=== PATIENT | male | born 1975 ===

== ENCOUNTER → 2021-02-28 07:56 | Outpatient (CLI) | payer OTHER | END | disposition home or self-care (01) | LOC: LAB 07:56 | PROVIDERS: ATTEND Internal Medicine Hematology & Oncology | DX: C18.2 Malignant neoplasm of ascending colon (principal); D51.3 Other dietary vitamin B12 deficiency anemia; E55.9 Vitamin D deficiency, unspecified ==

== ENCOUNTER 2024-10-23 08:55 | Outpatient (CLI) | payer OTHER ==
[2024-10-23 11:27] LABS: HEMATOCRIT 43.9 % (39.0-48.0); HEMOGLOBIN 14.7 g/dL (13-16.00); MEAN CELL VOLUME 92.4 fL (80.0-100.00); MEAN CORPUSCULAR HEMOGLOBIN 30.9 pg (27.00-32.0); MEAN CORPUSCULAR HGB CONC 33.4 g/dl (32.0-36.0); PLATELET COUNT 201 K/uL (150-450); RED BLOOD COUNT 4.75 M/uL (4.00-6.00); RED CELL DISTRIBUTION WIDTH 12.9 % (11.5-14.5)
[2024-10-23 12:30] LABS: BILIRUBIN TOTAL 1.11 mg/dL (0.3-1.2); CALCIUM 9.1 mg/dL (8.5-10.1); CREATININE SERUM 0.86 mg/dL (0.70-1.30); GFR 95.32; GLOBULINA 3.6 G/DL (2.4-3.5); POTASSIUM 4.52 mEq/L (3.5-5.1); PROSTATIC SPECIFIC ANTIGEN 3.62 NG/ML (0.010-4.00); T4 FREE 1.09 NG/ML (0.76-1.46); TOTAL PROTEIN 7.6 gm/dL (6.4-8.2); TSH 1.08 uIU/mL (0.358-3.74)
[2024-10-23 13:18] LABS: FOLIC ACID > 20.00 ng/ml (4.78-20)
== END 2024-10-23 08:56 | disposition home or self-care (01) ==
LOC: LAB 08:55
PROVIDERS: ATTEND Internal Medicine Hematology & Oncology
DX: C18.2 Malignant neoplasm of ascending colon (principal); D51.3 Other dietary vitamin B12 deficiency anemia; E55.9 Vitamin D deficiency, unspecified; E06.3 Autoimmune thyroiditis; K80.20 Calculus of gallbladder without cholecystitis without obstruction; D50.8 Other iron deficiency anemias; I10 Essential (primary) hypertension; R74.02 Elevation of levels of lactic acid dehydrogenase [LDH]; K76.89 Other specified diseases of liver; D51.1 Vitamin B12 deficiency anemia due to selective vitamin B12 malabsorption with proteinuria; E03.8 Other specified hypothyroidism

== ENCOUNTER 2024-11-25 08:51 | Outpatient (CLI) | payer OTHER | END 2024-11-25 08:52 | disposition home or self-care (01) | LOC: NUCLEAR 08:51 | PROVIDERS: ATTEND Internal Medicine Hematology & Oncology | DX: K82.9 Disease of gallbladder, unspecified (principal); K80.20 Calculus of gallbladder without cholecystitis without obstruction ==